=== PATIENT | male | born 1960 | race Caucasian/White ===

== ENCOUNTER → 2017-02-27 | Outpatient (CLI) | payer OTHER ==
[~2017-02-27] MED LIST: ASPIRIN EC81 MG PO; FLEXERIL 10 MG10 MG PO; GLUCOPHAGE1000 MG PO; LANTUS100 UNIT/1 SC; LIPITOR TAB 2020 MG PO; NEURONTIN 300300 MG PO; NORCO 7.5-3251 EACH PO; PROTONIX40 MG PO; ZESTRIL30 MG PO
== END ==
LOC: KOH-I 02-21 08:00
DX: S42.102A Fracture of unspecified part of scapula, left shoulder, initial encounter for closed fracture (principal)
CPT/HCPCS: 73218

== ENCOUNTER → 2021-04-14 | Outpatient (CLI) | payer MEDICARE | LOC: EXRD 10:15 | DX: B19.20 Unspecified viral hepatitis C without hepatic coma (principal); K80.20 Calculus of gallbladder without cholecystitis without obstruction | CPT/HCPCS: 76700 ==

== ENCOUNTER → 2022-02-27 | Outpatient (CLI) | payer MEDICARE | LOC: US 09:22 → EXRD 09:22 → US 09:30 | DX: M25.562 Pain in left knee (principal); M25.561 Pain in right knee | CPT/HCPCS: 73564 ==

== ENCOUNTER → 2022-04-19 | Day surgery (SDC) | payer MEDICARE ==
[~2022-04-19] MED LIST changes: +AMLODIPINE BESYL5 MG PO; +EZALLOR SPRINKLE5 MG PO; +HYDROCHLOROTHIA25 MG PO; +MELOXICAM15 MG PO; -ZESTRIL30 MG PO; +ZESTRIL40 MG PO
== END | disposition home or self-care (01) ==
LOC: OR 07:29
DX: Z12.11 Encounter for screening for malignant neoplasm of colon (principal); K64.0 First degree hemorrhoids; Z86.010 Personal history of colon polyps; I10 Essential (primary) hypertension; E78.5 Hyperlipidemia, unspecified; K21.9 Gastro-esophageal reflux disease without esophagitis; E11.9 Type 2 diabetes mellitus without complications; E66.3 Overweight; Z79.4 Long term (current) use of insulin; Z79.82 Long term (current) use of aspirin; Z79.899 Other long term (current) drug therapy; Z68.27 Body mass index [BMI] 27.0-27.9, adult
CPT/HCPCS: 82962; J2001; J2704; J7040